=== PATIENT | male | born 1950 | race Caucasian/White ===

== ENCOUNTER 2016-12-09 07:04 | Emergency (ER) | payer OTHER ==
[~2016-12-09] VITALS: Ht 177.8 cm; Wt 94.1 kg
[~2016-12-09 07:04] MED LIST: ADVAIR 250/501 DISK IH; ASPIRIN EC325 MG PO; Advair 250/50 Diskus IH; B-121500 MCG PO; CENTRUM SILVER1 EAC3; CENTRUM SILVER1 EAC3 PO; CHANTIX1 MG PO; COMBIVENT RESPIM4 GM IH; COZAAR50 MG PO; CRESTOR40 MG PO; Cozaar PO; DIABETA5 MG PO; DuoNeb IH; ENDOCET 5-3251 EACH PO; GLUCOPHAGE1000 MG PO; GLUCOPHAGE500 MG PO; Levaquin PO; METOPROLOL SUCC50 MG PO; PANTOPRAZOLE SO40 MG PO; Protonix PO; SPIRIVA1 INHALATI IH; SUCRALFATE1 GM PO; TOPROL XL50 MG PO; Toprol XL PO; VENTOLIN HFA18 GM IH; VIAGRA100 MG PO
[2016-12-09] MEDS ORDERED: AMLODIPINE BESY10 MG PO (07:26)
[2016-12-09] MEDS ORDERED: IBUPROFEN800 MG PO (07:27)
[2016-12-09] MEDS ORDERED: GABAPENTIN300 MG PO (07:27)
[2016-12-09] MEDS ORDERED: HALOBETASOL PRO15 GM TP (07:28)
[2016-12-09] MEDS ORDERED: PROAIR RESPICL90 MCG IH (07:28)
[2016-12-09] MEDS ORDERED: BACLOFEN20 MG PO (07:29)
[2016-12-09] MEDS ORDERED: TRESIBA FL200 UNIT/1 SC (07:31)
[2016-12-09] MEDS ORDERED: PREDNISONE5 M1 PO (07:45)
[2016-12-09 08:10] VITALS: BP 174/91
== END 2016-12-09 08:12 | disposition home or self-care (01) ==
LOC: EME 07:04
DX: M54.5 Low back pain (principal); E11.9 Type 2 diabetes mellitus without complications
CPT/HCPCS: 99281; 99283; J2270